=== PATIENT | female | born 1930 | race Caucasian/White ===

== ENCOUNTER 2019-03-02 14:39 | Emergency (ER) | payer MEDICARE ==
[~2019-03-02] VITALS: Wt 64.4 kg
[~2019-03-02 14:39] MED LIST: ASPI-COR81 M1 PO; ATOXIMETIN-B1 CAP PO; BENADRYL25 MG PO; FOSAMAX70 MG PO; GLUCOTROL10 MG PO; GLUCOTROL5 MG PO; HYDROCODONE BIT1 T11 PO; IMDUR SA30 MG PO; LANTUS100 U/ML SC; LIDEX0.05% T; LIPITOR10 MG PO; METFORMIN1000 MG PO
[2019-03-02 14:40] VITALS: BP 145/53
== END 2019-03-02 17:12 | disposition home or self-care (01) ==
LOC: ED 14:39
DX: S70.02XA Contusion of left hip, initial encounter (principal); Z79.899 Other long term (current) drug therapy; Z79.82 Long term (current) use of aspirin; Z79.4 Long term (current) use of insulin; W18.30XA Fall on same level, unspecified, initial encounter; Y93.89 Activity, other specified; Y92.89 Other specified places as the place of occurrence of the external cause; Y99.9 Unspecified external cause status

== ENCOUNTER 2019-09-18 07:18 | Inpatient (IN) | payer MEDICARE, MEDICAID ==
[~2019-09-18] VITALS: Ht 149.8 cm; Wt 60.8 kg
[2019-09-18 07:25] VITALS: BP 138/63
[2019-09-18 08:00] VITALS: BP 158/48
[2019-09-18 09:01] LABS: BASO % 0.4 % (0.0-1.0); EOS # 0.3 10*3/uL (0.0-0.4); EOS % 3.7 % (1.0-4.0); HEMATOCRIT 30.7 % (37.0-47.0); LYMPH # 4.4 10*3/uL (1.3-4.4); LYMPH % 59.3 % (27.0-41.0); MEAN CORPUSCULAR HGB 30.3 pg (27.0-31.0); MEAN CORPUSCULAR HGB CONC 32.6 g/dl (33.0-37.0); MEAN PLATELET VOLUME 9.5 fl (9.6-12.3); MONO # 0.6 10*3/uL (0.1-1.0); MONO % 8.7 % (3.0-9.0); NEUT # 2.1 10*3/uL (2.3-7.9); NEUT % 27.8 % (47.0-73.0); PLATELET COUNT AUTOMATED 148 10*3/uL (130-400); RED CELL DISTRI WIDTH 13.8 % (0-14.5); WHITE BLOOD COUNT 7.4 10*3/uL (4.8-10.8)
[2019-09-18 09:17] LABS: ALBUMIN 2.8 gm/dl (3.1-4.5); ALKALINE PHOSPHATASE 74 U/L (45-117); BUN 44 mg/dl (7-24); CHLORIDE 110 mmol/L (98-107); CREATININE 1.68 mg/dL (0.55-1.02); LIPASE 126 U/L (73-393); POTASSIUM 4.6 mmol/L (3.5-5.1); SGOT/AST 13 IU/L (3-35); SGPT/ALT 19 U/L (12-78); SODIUM 139 mmol/L (136-145); TOTAL PROTEIN 6.9 gm/dL (6.4-8.2); TROPONIN I 0.021 ng/ml (<0.045)
[2019-09-18 09:26] LABS: ACT PARTIAL THROMBO TIME 27.1 SECONDS (20.0-32.1)
[2019-09-18 09:41] LABS: BILIRUBIN NEGATIVE (NEGATIVE); BLOOD NEGATIVE (NEGATIVE); CLARITY CLOUDY (CLEAR); COLOR YELLOW (YELLOW); GLUCOSE NEGATIVE (NEGATIVE); KETONE NEGATIVE (NEGATIVE); PH 8.5 (5.0-9.0); SPECIFIC GRAVITY 1.015 (1.005-1.030)
[2019-09-18 09:42] LABS: BACTERIA 4+; LEUKO ESTERASE 3+ (NEGATIVE); NITRITE NEGATIVE (NEGATIVE); UROBILINOGEN < 0.2 E.U./dl (0.2-1.0)
[2019-09-18 10:50] VITALS: BP 118/57
[2019-09-18 12:00] VITALS: BP 158/48
[2019-09-18] MEDS ORDERED: VITAMIN D350 MC2 PO (12:18)
[2019-09-18] MEDS ORDERED: Amaryl2 MG PO (12:19)
[2019-09-18] MEDS ORDERED: AMARYL4 MG PO (12:19)
[2019-09-18] MEDS ORDERED: Synthroid,Levo50 MCG PO (12:20)
[2019-09-18] MEDS ORDERED: LIPITOR40 MG PO (12:20)
[2019-09-18] MEDS ORDERED: MIRALAX17 GM PO (12:21)
[2019-09-18] MEDS ORDERED: COLACE100 MG PO (12:21)
[2019-09-18] MEDS ORDERED: REMERON15 M2 PO (12:21)
[2019-09-18] MEDS ORDERED: LOPRESSOR25 MG PO (12:22)
[2019-09-18] MEDS ORDERED: NOVOLOG10 ML SC (12:23)
[2019-09-18] MEDS ORDERED: MILK OF MA400 MG/5 M PO (12:24)
[2019-09-18 16:00] VITALS: BP 148/68
[2019-09-18 20:00] VITALS: BP 112/86
[2019-09-19] VITALS: BP 128/52
[2019-09-19 06:25] LABS: BASO % 0.3 % (0.0-1.0); EOS % 0.4 % (1.0-4.0); HEMATOCRIT 30.8 % (37.0-47.0); LYMPH # 1.4 10*3/uL (1.3-4.4); LYMPH % 18.8 % (27.0-41.0); MEAN CELL VOLUME 93.3 fl (81.0-99.0); MEAN CORPUSCULAR HGB 29.4 pg (27.0-31.0); MEAN CORPUSCULAR HGB CONC 31.5 g/dl (33.0-37.0); MEAN PLATELET VOLUME 9.8 fl (9.6-12.3); MONO # 0.5 10*3/uL (0.1-1.0); MONO % 6.8 % (3.0-9.0); NEUT # 5.5 10*3/uL (2.3-7.9); NEUT % 73.3 % (47.0-73.0); PLATELET COUNT AUTOMATED 161 10*3/uL (130-400); RED CELL DISTRI WIDTH 13.3 % (0-14.5); WHITE BLOOD COUNT 7.5 10*3/uL (4.8-10.8)
[2019-09-19 06:33] LABS: CREATININE 1.46 mg/dL (0.55-1.02); FREE T4 1.14 ng/dl (0.76-1.46); POTASSIUM 4.8 mmol/L (3.5-5.1)
[2019-09-19 06:40] LABS: THYROID STIM HORMONE (HS) 3.32 uIU/ml (0.358-4.75)
[2019-09-19 08:00] VITALS: BP 135/91
[2019-09-19 08:19] LABS: VITAMIN D, 25-HYDROXY 51.7 ng/mL (30-100)
[2019-09-19 12:00] VITALS: BP 146/77
[2019-09-19 16:00] VITALS: BP 128/44
[2019-09-19 20:00] VITALS: BP 105/83
[2019-09-20] VITALS: BP 124/85
[2019-09-20 04:54] LABS: CREATININE 1.41 mg/dL (0.55-1.02); POTASSIUM 3.9 mmol/L (3.5-5.1)
[2019-09-20 08:00] VITALS: BP 148/70
[2019-09-20 12:00] VITALS: BP 152/58
[2019-09-20] MEDS ORDERED: ERTAPENEM1 GM IV (15:10)
[2019-09-20 16:00] VITALS: BP 128/99
[2019-09-21] VITALS: BP 138/90
[2019-09-21 08:00] VITALS: BP 124/63
[2019-09-21 12:00] VITALS: BP 115/66
[2019-09-21 16:00] VITALS: BP 110/40
== END 2019-09-21 22:19 | disposition other institution (70) | DRG 689 ==
LOC: ED 07:18 → EDHOLD 10:42 → 4E 10:42
PROVIDERS: Emergency Medicine; Internal Medicine; ADMIT Internal Medicine
DX: N30.00 Acute cystitis without hematuria (principal); N17.0 Acute kidney failure with tubular necrosis; E44.0 Moderate protein-calorie malnutrition; F33.9 Major depressive disorder, recurrent, unspecified; G91.2 (Idiopathic) normal pressure hydrocephalus; Z16.12 Extended spectrum beta lactamase (ESBL) resistance; E11.22 Type 2 diabetes mellitus with diabetic chronic kidney disease; G30.9 Alzheimer's disease, unspecified; I25.10 Atherosclerotic heart disease of native coronary artery without angina pectoris; Z66 Do not resuscitate; Z51.5 Encounter for palliative care; D64.9 Anemia, unspecified; E87.8 Other disorders of electrolyte and fluid balance, not elsewhere classified; E11.65 Type 2 diabetes mellitus with hyperglycemia; E03.9 Hypothyroidism, unspecified; F02.80 Dementia in other diseases classified elsewhere, unspecified severity, without behavioral disturbance, psychotic disturbance, mood disturbance, and anxiety; M81.0 Age-related osteoporosis without current pathological fracture; R26.2 Difficulty in walking, not elsewhere classified; R79.89 Other specified abnormal findings of blood chemistry; E78.5 Hyperlipidemia, unspecified; N18.3 Chronic kidney disease, stage 3 (moderate); I12.9 Hypertensive chronic kidney disease with stage 1 through stage 4 chronic kidney disease, or unspecified chronic kidney disease; E55.9 Vitamin D deficiency, unspecified; B96.29 Other Escherichia coli [E. coli] as the cause of diseases classified elsewhere; E86.0 Dehydration; I25.2 Old myocardial infarction; Z79.82 Long term (current) use of aspirin; Z79.899 Other long term (current) drug therapy; Z98.42 Cataract extraction status, left eye; Z98.41 Cataract extraction status, right eye; Z79.4 Long term (current) use of insulin; Z68.27 Body mass index [BMI] 27.0-27.9, adult; Z20.828 Contact with and (suspected) exposure to other viral communicable diseases